=== PATIENT | female | born 1980 | race Caucasian/White ===

== ENCOUNTER 2019-07-06 20:27 | Emergency (ER) | payer SELFPAY ==
[2019-07-06 20:43] VITALS: BP 117/85; PULSE 97; TEMP 97.8; BMI 26.4
[2019-07-06] MEDS ORDERED: TETANUS AND DIPHTHERIA TOXOID 0.5 ML DISP.SYRIN IM ONE ×2 (20:49→20:57)
--- NOTE | 2019-07-06 22:47 | PDOC ---
Documentation entered by Rama Yip SCRIBE, acting as scribe for Kulwant Lindsay MD. Kulwant Lindsay MD: This documentation has been prepared by the scribe, Rama Yip SCRIBE, under my direction and personally reviewed by me in its entirety. I confirm that the documentation accurately reflects all work, treatment, procedures, and medical decision making performed by me. History of Present Illness - General Chief Complaint: Bite Stated Complaint: DOG BITE TO RIGHT HAND History Source: Patient Exam Limitations: No Limitations - History of Present Illness Initial Comments: 07/06/19 20:58 The patient is a 38-year-old female with no reported past medical history who presents to the emergency department s/p a dog bite to the right thumb. The patient reports she was at a friend's [employer], where a friend of hers was playing rough with the dog. The patient states she tried to pull the friend away from the dog when she was bitten on the hand by the dog. The patient is unsure if the dogs immunizations are up to date. The patient reports her last tetanus was more than 10 years ago. Past History - Past Medical History Allergies/Adverse Reactions: Allergies Allergy/AdvReac Type Severity Reaction Status Date / Time latex Allergy Verified 07/06/19 20:28 Home Medications: Ambulatory Orders Buprenorphine/Naloxone [Suboxone 2Mg/0.5MG Sl Film -] 0.5 combo SL DAILY COPD: No - Psycho Social/Smoking Cessation Hx Smoking History: Current some day smoker Have you smoked in the past 12 months: Yes Information on smoking cessation initiated: Yes Hx Alcohol Use: (occasional) Review of Systems - Review of Systems Able to Perform ROS?: Yes Comments:: 07/06/19 20:58 CONSTITUTIONAL: No fever, no chills, no fatigue EYES: No visual changes ENT: No ear pain, no sore throat CARDIOVASCULAR: No chest pain, no palpitations RESPIRATORY: No cough, no SOB GI: No abdominal pain, no nausea, no vomiting, no constipation, no diarrhea GENITOURINARY: No dysuria, no frequency, no hematuria MUSKULOSKELETAL: No backpain, no joint pain, no myalgias SKIN: +wound to the right thumb. No rash NEURO: No headache *Physical Exam - Vital Signs Last Vital Signs Temp Pulse Resp BP Pulse Ox 97.8 F 97 H 18 117/85 100 07/06/19 20:27 07/06/19 20:27 07/06/19 20:27 07/06/19 20:27 07/06/19 20:27 - Physical Exam Comments: 07/06/19 20:59 CONSTITUTIONAL: Well-appearing; well-nourished; in no apparent distress HEAD: Normocephalic; atraumatic EYES: PERRL; EOM intact ENMT: External appears normal NECK: Supple; non-tender EXT: Normal ROM in all four extremities; non-tender to palpation SKIN: +2 puntate wound to the right thumb. Warm, dry, no rash Medical Decision Making - Medical Decision Making 07/07/19 04:45 dog bite with punctate wounds dog can be observed supportive care tetanus Discharge - Discharge Information Problems reviewed: Yes Clinical Impression/Diagnosis: Dog bite Qualifiers: Encounter type: initial encounter Qualified Code(s): W54.0XXA - Bitten by dog, initial encounter Condition: Stable Disposition: HOME - Follow up/Referral - Patient Discharge Instructions Patient Printed Discharge Instructions: DI for Animal Bites - Post Discharge Activity
== END 2019-07-06 21:11 | disposition home or self-care (01) ==
LOC: FER 20:27
PROC: 3E0234Z Introduction of Serum, Toxoid and Vaccine into Muscle, Percutaneous Approach (ICD-10-PCS; principal; 2019-07-06)
DX: S61.051A Open bite of right thumb without damage to nail, initial encounter (principal); W54.0XXA Bitten by dog, initial encounter; Y93.9 Activity, unspecified; Y92.9 Unspecified place or not applicable; F17.210 Nicotine dependence, cigarettes, uncomplicated; Z91.040 Latex allergy status
CPT/HCPCS: 99283-25

== ENCOUNTER 2020-08-02 15:39 | Emergency (ER) | payer OTHER ==
[2020-08-02 16:19] VITALS: BP 129/64; PULSE 88; TEMP 98.9; BMI 27.3
== END 2020-08-02 21:31 | disposition home or self-care (01) ==
LOC: JER 15:39
DX: M79.10 Myalgia, unspecified site (principal); Z11.59 Encounter for screening for other viral diseases
CPT/HCPCS: 87804; 99283-25; C9803; U0003